=== PATIENT | female | born 1970 | race African-American/Black ===

== ENCOUNTER 2023-04-30 17:08 | Emergency (ER) | payer OTHER ==
[~2023-04-30] VITALS: Ht 170.2 cm; Wt 105.0 kg
[2023-04-30 17:35] VITALS: BP 206/104; PULSE 91; RESP 16; TEMP 98.3; O2SAT 100
[2023-04-30] MEDS ORDERED: CEPH500C2 MT (18:29)
[2023-04-30] MEDS ORDERED: SULF1TAB48 MT (18:29)
== END 2023-04-30 20:07 | disposition home or self-care (01) ==
LOC: ER 17:08
DX: L97.929 Non-pressure chronic ulcer of unspecified part of left lower leg with unspecified severity (principal); I10 Essential (primary) hypertension; Z98.890 Other specified postprocedural states; Z90.49 Acquired absence of other specified parts of digestive tract; Z88.5 Allergy status to narcotic agent; Z88.1 Allergy status to other antibiotic agents
CPT/HCPCS: 99283

== ENCOUNTER 2025-02-12 16:48 | Inpatient (IN) | payer OTHER ==
[~2025-02-12] VITALS: Ht 172.7 cm; Wt 143.0 kg
[~2025-02-12 16:48] MED LIST: ASCO-494 PO; ATEN100T PO; FERR-63 PO; GABA-290 PO; HYDR50TA PO; MELO-106 PO; RIVA20TA PO; T4 PO; TIZA-204 PO
[2025-02-12 17:07] VITALS: O2SAT 99
[2025-02-12] MEDS: MORPHINE SULFATE 4 MG/ML INJ (FOR IV/IM USE) IV ONE (19:18)
[2025-02-12 19:29] LABS: BASOPHILS % 0.4 % (0.0-2.0); EOSINOPHILS % 1.2 % (0.0-5.0); HEMATOCRIT. 27.6 % (36.0-48.0); HEMOGLOBIN. 8.3 g/dL (12.0-16.0); LYMPHOCYTES % 10.0 % (20.0-50.0); MEAN PLATELET VOLUME 8.7 fl (7.4-10.4); MONOCYTES % 11.1 % (2.0-8.0); NEUTROPHILS % 77.3 % (40.0-76.0); PLATELET 223 x1000/uL (130-400); RED BLOOD CELL COUNT 4.09 mill/uL (4.2-5.4); RED CELL DISTRIBUTION WIDTH 19.0 % (11.6-14.6)
[2025-02-12] MEDS: DIPHENHYDRAMINE 50MG/ML VIAL IV ONE (19:30)
[2025-02-12] MEDS ORDERED: METHYLPREDNISOLONE 40MG/ML INJ IV ONE (19:30)
[2025-02-12 19:31] LABS: ADD RBC MORPHOLOGY YES
[2025-02-12 19:46] LABS: CREATININE 0.9 mg/dL (0.6-1.0)
[2025-02-12 19:47] LABS: UREA NITROGEN BLOOD 9 mg/dL (9-23)
[2025-02-12 19:48] LABS: ASPARTATE AMINOTRANSFERASE 29 IU/L (<34)
[2025-02-12 19:49] LABS: BILIRUBIN TOTAL 0.4 mg/dL (0.1-1.0); PROTEIN TOTAL 7.0 g/dL (6.0-8.3)
[2025-02-12 20:05] LABS: PLATELET ESTIMATE NORMAL
[2025-02-12] MEDS: METHYLPREDNISOLONE SOD SUCC 125MG/2ML (ACT-O-VIAL) IV SCH (21:07)
[2025-02-12] MEDS: SODIUM CHLORIDE 0.9% (SEPSIS BOLUS) IV ONE (21:07)
[2025-02-12] MEDS: LINEZOLID 600 MG PREMIX 300 ML IV SCH (21:19)
[2025-02-12] MEDS: PIPERACILLIN/TAZO 3.375G/50ML 50 ML IV SCH (22:15)
[2025-02-13] VITALS (7 sets, daily range): BP systolic 104–173; BP diastolic 51–96; PULSE 96–108; RESP 16–25; TEMP 35.8–36.7; O2SAT 97–99
[2025-02-13] MEDS ORDERED: ACETAMINOPHEN 325MG TABLET PO PRN ×2
[2025-02-13] MEDS ORDERED: ONDANSETRON HCL 4MG/2ML INJ IV PRN
[2025-02-13] MEDS ORDERED: IPRATROPIUM/ALBUTEROL 0.5-3(2.5)MG/3ML NEB HHN PRN
[2025-02-13] MEDS ORDERED: MAGNESIUM/ALUMINUM HYDROXIDE/SIMETHICONE 30ML UDC PO PRN
[2025-02-13] MEDS: AMLODIPINE 10MG TABLET PO SCH (01:04)
[2025-02-13] MEDS: MORPHINE SULFATE 4 MG/ML INJ (FOR IV/IM USE) IV PRN (02:07)
[2025-02-13] MEDS ORDERED: NALOXONE HCL 0.4MG/ML VIAL IV PRN (02:15)
[2025-02-13] MEDS: CLONIDINE 0.1MG TABLET PO PRN (02:17)
[2025-02-13] MEDS: DIPHENHYDRAMINE 50MG/ML VIAL IV NR (02:41)
[2025-02-13 07:59] LABS: CREATININE 0.8 mg/dL (0.6-1.0); TRIGLYCERIDE 71 mg/dL (0-150); UREA NITROGEN BLOOD 9 mg/dL (9-23)
[2025-02-13 08:00] LABS: LDL CHOLESTEROL 96 mg/dL (5-100)
[2025-02-13 08:04] LABS: HEMATOCRIT. 27.5 % (36.0-48.0); HEMOGLOBIN. 8.5 g/dL (12.0-16.0); MEAN PLATELET VOLUME 8.8 fl (7.4-10.4); PLATELET 232 x1000/uL (130-400); RED BLOOD CELL COUNT 4.13 mill/uL (4.2-5.4); RED CELL DISTRIBUTION WIDTH 18.5 % (11.6-14.6)
[2025-02-13 08:17] LABS: FOLIC ACID (FOLATE) SERUM 12.95 ng/mL (>5.38)
[2025-02-13 08:18] LABS: VITAMIN B12 SERUM 492 pg/mL (211-911)
[2025-02-13] MEDS ORDERED: ENOXAPARIN 40MG/0.4ML SYR SUBCUT SCH (09:00)
[2025-02-13] MEDS: HYDROCODONE/ACETAMINOPHEN 5/325MG TABLET PO PRN (09:33)
[2025-02-13] MEDS: HYDROCHLOROTHIAZIDE 25MG TABLET PO SCH (09:34)
[2025-02-13] MEDS: LINEZOLID 600 MG PREMIX 300 ML IV SCH (10:18)
[2025-02-13] MEDS: PANTOPRAZOLE SODIUM 40 MG/VIAL IV SCH (10:18)
[2025-02-13] MEDS ORDERED: IOHEXOL-300 100 ML BOTTLE ONE (15:16)
[2025-02-13 17:37] LABS: LYMPHOCYTES % MANUAL 8.0 % (20.0-60.0); NEUTROPHILS % MANUAL 92.0 % (45.0-75.0); PLATELET ESTIMATE NORMAL
[2025-02-13] MEDS: RIVAROXABAN 20 MG TABLET PO SCH (18:47)
[2025-02-13] MEDS: KETOROLAC 30MG/ML VIAL IV PRN (21:22)
[2025-02-14] VITALS: BP 114/54; PULSE 102; RESP 20; TEMP 36.3; O2SAT 97
[2025-02-14 04:00] VITALS: BP 112/52; PULSE 96; RESP 20; TEMP 36.2; O2SAT 98
[2025-02-14 08:00] VITALS: BP 140/67; PULSE 93; RESP 18; TEMP 36.1; O2SAT 97
[2025-02-14] MEDS: MORPHINE SULFATE 4 MG/ML INJ (FOR IV/IM USE) IV PRN (08:46)
[2025-02-14 12:00] VITALS: BP 134/67; PULSE 98; RESP 17; TEMP 36.2; O2SAT 97
[2025-02-14 16:00] VITALS: BP 144/87; PULSE 101; RESP 17; RESP 18; TEMP 36.3; TEMP 36.5; O2SAT 97; O2SAT 99
[2025-02-14 20:00] VITALS: BP 144/79; PULSE 108; RESP 20; TEMP 36.3; O2SAT 96
[2025-02-14 22:04] LABS: BASOPHILS % 0.5 % (0.0-2.0); EOSINOPHILS % 0.9 % (0.0-5.0); HEMATOCRIT. 25.8 % (36.0-48.0); HEMOGLOBIN. 7.9 g/dL (12.0-16.0); LYMPHOCYTES % 13.8 % (20.0-50.0); MEAN PLATELET VOLUME 8.7 fl (7.4-10.4); MONOCYTES % 10.8 % (2.0-8.0); NEUTROPHILS % 74.0 % (40.0-76.0); PLATELET 213 x1000/uL (130-400); RED BLOOD CELL COUNT 3.84 mill/uL (4.2-5.4); RED CELL DISTRIBUTION WIDTH 18.4 % (11.6-14.6)
[2025-02-14 22:14] LABS: CREATININE 1.0 mg/dL (0.6-1.0); UREA NITROGEN BLOOD 7 mg/dL (9-23)
[2025-02-15] VITALS: BP 151/82; PULSE 96; RESP 20; TEMP 36.3; O2SAT 97
[2025-02-15 04:00] VITALS: BP 148/85; PULSE 98; RESP 20; TEMP 36.4; O2SAT 97
[2025-02-15 08:00] VITALS: BP 135/69; PULSE 98; RESP 18; TEMP 36.1; O2SAT 98
[2025-02-15] MEDS ORDERED: CIPR500S5 PO (08:51)
[2025-02-15] MEDS ORDERED: AMOX1TAB16 MT (08:53)
[2025-02-15 12:00] VITALS: BP 137/70; PULSE 104; RESP 17; TEMP 36.2; O2SAT 96
[2025-02-15 15:32] VITALS: BP 66/130; PULSE 130; RESP 66; TEMP 98.1
[2025-02-15 16:00] VITALS: BP 128/67; PULSE 76; RESP 17; TEMP 36.2; O2SAT 97
== END 2025-02-15 16:35 | disposition home or self-care (01) | DRG 380 ==
LOC: ER 16:48 → 6WST 21:51 → EDBEDREQSVC 22:02 → EDBEDREQTM 22:02 → EDBEDREQ 22:02 → ENRESERV 22:48
PROVIDERS: ADMIT Internal Medicine; ATTEND Internal Medicine
DX: L97.829 Non-pressure chronic ulcer of other part of left lower leg with unspecified severity (principal); I96 Gangrene, not elsewhere classified; D68.59 Other primary thrombophilia; D72.0 Genetic anomalies of leukocytes; I82.512 Chronic embolism and thrombosis of left femoral vein; L03.116 Cellulitis of left lower limb; I87.8 Other specified disorders of veins; E78.5 Hyperlipidemia, unspecified; I10 Essential (primary) hypertension; E66.01 Morbid (severe) obesity due to excess calories; D50.9 Iron deficiency anemia, unspecified; D72.810 Lymphocytopenia; Z98.84 Bariatric surgery status; Z88.1 Allergy status to other antibiotic agents; Z79.899 Other long term (current) drug therapy; Z90.49 Acquired absence of other specified parts of digestive tract; Z87.891 Personal history of nicotine dependence; Z79.01 Long term (current) use of anticoagulants; Z88.5 Allergy status to narcotic agent; Z68.42 Body mass index [BMI] 45.0-49.9, adult
CPT/HCPCS: 36415; 73701; 80048; 80053; 80061; 82607; 82746; 83540; 83550; 83605; 84145; 85025; 87070; 87077; 87186; 93005; 93971; 96365; 96375; 99291; J1200; J1885; J2020; J2270; J2470; J2543; J2919; Q9967

== ENCOUNTER 2025-04-09 10:54 | Inpatient (IN) | payer OTHER ==
[~2025-04-09] VITALS: Ht 167.6 cm; Wt 120.7 kg
[~2025-04-09 10:54] MED LIST changes: +AMOX1TAB16 MT; +CIPR500S5 PO
[2025-04-09 11:25] VITALS: O2SAT 98
[2025-04-09] MEDS ORDERED: CEFTRIAXONE 1GM/50ML 50 ML IV ONE (14:30)
[2025-04-09] MEDS ORDERED: MORPHINE SULFATE 4 MG/ML INJ (FOR IV/IM USE) IV ONE (14:30)
[2025-04-09] MEDS: SODIUM CHLORIDE 0.9% (SEPSIS BOLUS) IV ONE (16:24)
[2025-04-09] MEDS ORDERED: DIPHENHYDRAMINE 50MG CAPSULE PO ONE (16:30)
[2025-04-09 16:43] LABS: BASOPHILS % 0.5 % (0.0-2.0); EOSINOPHILS % 0.6 % (0.0-5.0); HEMATOCRIT. 28.3 % (36.0-48.0); HEMOGLOBIN. 8.6 g/dL (12.0-16.0); LYMPHOCYTES % 13.6 % (20.0-50.0); MEAN PLATELET VOLUME 9.0 fl (7.4-10.4); MONOCYTES % 8.9 % (2.0-8.0); NEUTROPHILS % 76.4 % (40.0-76.0); PLATELET 287 x1000/uL (130-400); RED BLOOD CELL COUNT 4.33 mill/uL (4.2-5.4); RED CELL DISTRIBUTION WIDTH 19.0 % (11.6-14.6)
[2025-04-09] MEDS: CEFTRIAXONE 1GM/50ML 50 ML IV SCH (16:43)
[2025-04-09] MEDS: MORPHINE SULFATE 4 MG/ML INJ (FOR IV/IM USE) IV SCH (16:43)
[2025-04-09 16:44] LABS: ADD RBC MORPHOLOGY YES
[2025-04-09 16:53] LABS: INR 1.1
[2025-04-09 16:55] LABS: CREATININE 0.9 mg/dL (0.6-1.0); UREA NITROGEN BLOOD 9 mg/dL (9-23)
[2025-04-09 16:57] LABS: ASPARTATE AMINOTRANSFERASE 37 IU/L (<34); BILIRUBIN DIRECT 0.2 mg/dL (<=3.0); BILIRUBIN TOTAL 0.4 mg/dL (0.1-1.0); PROTEIN TOTAL 7.4 g/dL (6.0-8.3)
[2025-04-09] MEDS: DIPHENHYDRAMINE 25MG CAPSULE PO SCH (17:00)
[2025-04-09 17:07] LABS: PLATELET ESTIMATE NORMAL
[2025-04-09] MEDS: LINEZOLID 600 MG PREMIX 300 ML IV ONE (18:34)
[2025-04-09] MEDS: MORPHINE SULFATE 4 MG/ML INJ (FOR IV/IM USE) IV ONE (20:18)
[2025-04-10 00:15] VITALS: BP 123/60; PULSE 124; RESP 20; TEMP 37.0852
[2025-04-10] MEDS ORDERED: DEXTROSE 50% WATER 50ML SYRINGE IV PRN (01:15)
[2025-04-10] MEDS: MORPHINE SULFATE 4 MG/ML INJ (FOR IV/IM USE) IV NR (01:50)
[2025-04-10] MEDS: HYDROCODONE/ACETAMINOPHEN 10/325MG TABLET PO PRN (03:45)
[2025-04-10] MEDS: INSULIN LISPRO 100 UNITS/ML SUBCUT SCH (07:00)
[2025-04-10] MEDS: PIPERACILLIN/TAZO 3.375G/50ML 50 ML IV SCH (07:01)
[2025-04-10 08:00] VITALS: BP 144/75; PULSE 101; RESP 19; TEMP 36.1; O2SAT 99
[2025-04-10] MEDS: BLOOD SUGAR DIAGNOSTIC STRIP TEST SCH (09:00)
[2025-04-10] MEDS ORDERED: ONDANSETRON HCL 4MG/2ML INJ IV PRN (10:00)
[2025-04-10] MEDS ORDERED: NALOXONE HCL 0.4MG/ML VIAL IV PRN (13:00)
[2025-04-10] MEDS: GABAPENTIN 300MG CAPSULE PO SCH (13:30)
[2025-04-10] MEDS: METOPROLOL TARTRATE 25MG TABLET PO NR (13:30)
[2025-04-10 14:35] VITALS: BP 122/60; PULSE 96; RESP 18; TEMP 97.7
[2025-04-10] MEDS ORDERED: RIVAROXABAN 20 MG TABLET PO SCH (18:15)
[2025-04-10] MEDS ORDERED: METOPROLOL TARTRATE 25MG TABLET PO SCH (21:00)
== END 2025-04-10 15:03 | disposition short-term general hospital (02) | DRG 380 ==
LOC: ER 10:54 → CANBEDREQ 19:13 → EDBEDREQ 21:02 → ENRESERV 22:47 → 4WST 23:49
PROVIDERS: ADMIT Internal Medicine; ATTEND Internal Medicine
DX: E11.622 Type 2 diabetes mellitus with other skin ulcer (principal); L97.929 Non-pressure chronic ulcer of unspecified part of left lower leg with unspecified severity; I82.413 Acute embolism and thrombosis of femoral vein, bilateral; D68.59 Other primary thrombophilia; D72.810 Lymphocytopenia; E66.01 Morbid (severe) obesity due to excess calories; D50.9 Iron deficiency anemia, unspecified; I10 Essential (primary) hypertension; I87.009 Postthrombotic syndrome without complications of unspecified extremity; Z88.1 Allergy status to other antibiotic agents; Z86.718 Personal history of other venous thrombosis and embolism; Z98.84 Bariatric surgery status; Z68.41 Body mass index [BMI] 40.0-44.9, adult
CPT/HCPCS: 36415; 71045; 80048; 80076; 83036; 83605; 84145; 85025; 93005; 93970; 99285; A6449; J0696; J2020; J2270; J2543; J7030; Q0163